=== PATIENT | male | born 1955 | race Caucasian/White ===

== ENCOUNTER 2020-05-22 13:27 | Outpatient (CLI) | payer OTHER ==
[2020-05-22 15:36] VITALS: BP 130/60
--- NOTE | 2020-05-22 15:36 | SLEEP CARE CONSULTATION ---
Information from patient questionnaire entered by Bernadette Trejo. I have reviewed and concur with the information entered by Bernadette Trejo. This document represents the service I personally performed and the decisions made by me, Lencho Borja MD, [facility]. History of Present Illness Service Date and Time: 05/22/2020 1327 Reason for Visit: New patient, Previously diagnosed sleep apnea (moderate - AHI - 24.7 in 2005), Re-establish care Chief Complaint: reports: Unrefreshed sleep, Snoring, Excessive daytime sleepiness, Observed pauses in breathing, Fatigue, Frequent awakenings at night Date of Onset: 10 years, but worse lately Usual bedtime: 10 pm Time it takes to fall asleep: 5 minutes Snores at night: Yes Observed to quit breathing while asleep: Yes Sleeps alone due to snoring: No Number of times waking at night: 3-4 Reasons for waking at night: reports: Other (not sure, I wake up sometimes to roll over) Toss, Turn, or Twitch while sleeping: Yes Recalls having dreams: Yes Usually gets out of bed at: 4 :30 am Feels refreshed in the morning: Yes Morning headache: Yes Sleepy or fatigued during the day: Yes Ever fallen asleep while driving: Yes Takes day naps: Yes Dreams during day naps: No Prior sleep studies: Yes Year and Where: 2005 - [facility]; 1995 - [facility] Type of Sleep Study: Polysomnography Additional HPI information: I had the pleasure of seeing Mr. Unger today regarding obstructive sleep apnea- hypopnea. As you know, he is a 64 year old gentleman who was diagnosed with the sleep-disordered breathing here in 2005. The AHI was 24.7 and jerome oxygen saturation of 72%. He was prescribed a CPAP device and used it for several years. In 2008 he had a bariatric surgery and lost almost 100 lbs. He quit using his CPAP. He wore a nasal mask. [employer] was his durable medical supplier. He now reports loud snore again. His notices choking noises. He feels very sleepy during the day ([place] Sleepiness Scale score of 22). He has high blood pressure. - Parasomnia Symptoms Ever been unable to move upon waking from sleep: No Ever felt weak in the knees when startled or emotional: No Bothered by creepy, crawly, restless sensations in legs: No Problems with memory or concentration: Yes Subjective Initial [place] Sleepiness Scale score: 22 (in 2006) Current [place] Sleepiness Scale score: 22 Past Medical History Past Medical History: reports: Hypertension, Diabetes, GERD Social History The patient's occupation is a [employer]. Patient is and lives in [place]. Have you smoked in the past 12 months: No Cigarettes per day (20/pack): 30 Years of smokin Quit date: 1986 Smoking Pack Years: 9.0 Alcohol use: No Caffeine use: No Family History Family history of sleep disordered breathing: Yes (mother) Allergies and Home Medications Drug allergies reviewed: Yes Home medication list reviewed: Yes Review of Systems Cardiovascular: reports: high blood pressure, irregular heart rate or pulse Gastrointestinal: reports: heartburn Urinary: denies: incontinence, frequency, urgency, impotence, other Neurological: denies: headaches, seizure, head trauma, disorientation, speech dysfunction, gait or balance problems, fainting or unconsciousness, other Psychiatric: denies: Attention Deficit Hyperactivity, anxiety, depression, mood disorder, claustrophobia, other Ear/Nose/Throat: reports: wisdom teeth removed Endocrine: reports: sluggishness Musculoskeletal: denies: joint pain, neck pain, back pain, joint swelling, muscle pain or cramping, mobility problems, other Immunologic: denies: sneezing, rash, itching, allergies to food or environment, other Physical Exam Blood Pressure: 130/60 Heart Rate: 74 O2 Saturation: 96 Height: 5 ft 8 in Weight: 260 lb Body Mass Index: 39.5 BMI Classification: Obese Neck circumference: 19 HEENT: No craniofacial malformation Nostrils: patent to airflow Impression and Plan IMPRESSION: 1. Obstructive Sleep Apnea-Hypopnea Syndrome, moderate, as previously diagnosed but his weight is down 70 lbs. He continues to be symptomatic for loud snore, frequent awakenings, unrefreshed sleep, morning headache, and excessive daytime sleepiness. Narrow oropharynx and obesity are common predisposing factors for obstructive sleep apnea-hypopnea syndrome. Untreated obstructive sleep apnea can also cause hypertension. I recommend proceeding to polysomnography to confirm the diagnosis and to reassess severity. I informed the patient of what the sleep studies involve and after some discussion, he agreed to proceed. Plan: 1. Schedule an in-laboratory polysomnography. 2. Avoid long distance driving or when feeling sleepy. 3. Avoid alcohol, sedative and muscle relaxant around bedtime. 4. Attempt to lose weight. 5. Return for follow up after the sleep study. Visit Type: In Office Time Spent with Patient (minutes): 15 Provider Statement: I spent 100% of the Face to Face Visit with the patient with greater than 50% spent counseling the patient and coordination of care.
== END 2020-05-22 13:28 | disposition home or self-care (01) ==
LOC: SC 13:27
PROVIDERS: ATTEND Internal Medicine Pulmonary Disease
DX: G47.33 Obstructive sleep apnea (adult) (pediatric) (principal); E66.9 Obesity, unspecified; Z68.39 Body mass index [BMI] 39.0-39.9, adult
CPT/HCPCS: 99202; 99212

== ENCOUNTER 2020-06-07 15:50 | Outpatient (CLI) | payer OTHER | END 2020-06-07 15:51 | disposition home or self-care (01) | LOC: SC 15:50 | PROVIDERS: ATTEND Internal Medicine Pulmonary Disease | DX: G47.33 Obstructive sleep apnea (adult) (pediatric) (principal); R09.02 Hypoxemia | CPT/HCPCS: 95806 ==

== ENCOUNTER 2020-06-12 15:24 | Outpatient (CLI) | payer OTHER ==
--- NOTE | 2020-06-12 15:52 | SLEEP CARE CONSULTATION ---
Information from patient questionnaire entered by Khanh Stack. I have reviewed and concur with the information entered by Khanh Stack. This document represents the service I personally performed and the decisions made by me, Lencho Borja MD, [facility]. History of Present Illness Service Date and Time: 06/12/2020 1524 Initial [place] Sleepiness Scale score: 22 (in 2005) Current [place] Sleepiness Scale score: 20 Additional HPI information: HPI: Mr. Unger returned for follow up of the sleep study he had on 06/07/2020. The test showed mild obstructive sleep apnea-hypopnea with an AHI of 14.4 and jerome oxygen saturation of 66%. The respiratory events occurred mainly during supine sleep. Baseline oxygen saturation was normal. The patient was informed of these findings. I explained to him the pathophysiology behind obstructive sleep apnea. We then spent quite a bit of time discussing different treatment options. For mild obstructive sleep apnea, surgery and oral appliance are alternatives to nasal CPAP therapy but in mod erate or severe cases, nasal CPAP is the most effective and reliable treatment. Weight loss in an obese individual is strongly recommended. After some discussion, he opted to try CPAP again. The patient used CPAP for many years and quit after bariatric surgery. He used a nasal mask. [employer] was his durable medical supplier. Sleep Study - Results Type of Sleep Study: Home sleep study Prior sleep studies: Yes Year and Where: 2005 - [facility]; 1995 - [facility] Allergies and Home Medications Drug allergies reviewed: Yes Home medication list reviewed: Yes Review of Systems Review of systems same as previous: Yes Physical Exam Height: 5 ft 8 in Weight: 260 lb Weight change since last visit: -70 lbs Body Mass Index: 39.5 BMI Classification: Obese Impression and Plan IMPRESSION: 1. Obstructive Sleep Apnea-Hypopnea Syndrome, mild, associated with moderate hypoxemia. Most likely, this is the cause of the patients symptoms of unrefreshed sleep, and excessive daytime sleepiness. As mentioned above, the patient will be started autoCPAP set between 5 and 15 cmH2O. Depending on his response and compliance he may be brought back for an overnight CPAP titration study. PLAN: 1. Prescription made for an autoCPAP, heated humidifier, and related supplies. 2. Attempt to lose weight and avoid alcohol consumption near bedtime. 3. Return for follow up after one month of using the CPAP. Counseling Topics: Weight loss health impact Prescriptions: Auto CPAP Follow up with Sleep Care in: 1-2 months Visit Type: In Office Time Spent with Patient (minutes): 15 Provider Statement: I spent 100% of the Face to Face Visit with the patient with greater than 50% spent counseling the patient and coordination of care.
== END 2020-06-12 15:25 | disposition home or self-care (01) ==
LOC: SC 15:24
PROVIDERS: ATTEND Internal Medicine Pulmonary Disease
DX: G47.33 Obstructive sleep apnea (adult) (pediatric) (principal); E66.9 Obesity, unspecified; Z68.39 Body mass index [BMI] 39.0-39.9, adult
CPT/HCPCS: 99212

== ENCOUNTER 2020-11-06 10:41 | Outpatient (CLI) | payer OTHER ==
--- NOTE | 2020-11-06 11:05 | SLEEP CARE CONSULTATION ---
Information from patient questionnaire entered by Danielle Spain. I have reviewed and concur with the information entered by Danielle Spain. This document represents the service I personally performed and the decisions made by me, Lencho Borja MD, [facility]. History of Present Illness Service Date and Time: 11/06/2020 1041 Previous diagnosis: Moderate, Obstructive Sleep Apnea-Hypopnea Syndrome AHI: 24.7 Reason for follow up: first compliance Equipment type: CPAP Equipment obtained from: Other ([employer]) Prior sleep studies: Yes Year and Where: 2005 - [facility]; 1995 - [facility] Type of Sleep Study: Home sleep study HPI additional information: HPI: Mr. Unger was diagnosed to have mild obstructive sleep apnea-hypopnea syndrome and returns today for follow up of CPAP therapy. The patient purchased the device from [employer] and was fitted with a nasal mask. He uses the device nightly and all through the night. The compliance report shows that he uses the device 30 nights out of the past 30 nights, averaging 6.4 hours a night. He complains of no particular problem with the device such as soreness on the face, dry nose, epistaxis, nasal congestion or headache. He thinks that the pressure of 5 - 15 cmH2O is comfortable. On the CPAP therapy he notices improvement in his sleep quality, and that he wakes up feeling fresher in the morning and more awake/alert during the day. His notices no snore at all. [place] Sleepiness Scale score is 22. The average residual AHI is 6.1; and average time in large leak per day is 0 minutes a night. The 90th percentile pressure is 9.4 cmH2O. Sleep Study - Results Type of Sleep Study: Home sleep study Prior sleep studies: Yes Year and Where: 2005 - [facility]; 1995 - [facility] CPAP Compliance Data - Data Reviewed with Patient Average duration of nightly device use: 6 hours 22 minutes Compliance rate %: 100 Current pressure setting (cmH2O): 5-15 Humidity settin Heated hose settin Average residual AHI: 6.1 Average large leak: 0 seconds Subjective Initial [place] Sleepiness Scale score: 22 (in 2005) Allergies and Home Medications Drug allergies reviewed: Yes Home medication list reviewed: Yes Review of Systems Review of systems same as previous: Yes Physical Exam Height: 5 ft 8 in Weight: 259 lb Body Mass Index: 39.4 BMI Classification: Obese Impression and Plan IMPRESSION: 1. Obstructive Sleep Apnea-Hypopnea Syndrome, mild, with the patient continuing to do well on nasal CPAP therapy. He has excellent compliance and significant clinical benefits. The current pressure appears comfortable but slightly ineffective. Overall, he is very satisfied with treatment and plans to continue with it long-term. I will adjust his pressure range to 8 12 cmH2O. His high [place] Sleepiness Scale score is most likely to insufficient sleep at night. PLAN: 1. Set the autoCPAP to 8 - 12 cm H2O. 2. Try to lose weight 3. Return in one year for follow up or earlier if there is any problem with the treatment. Counseling Topics: Weight control Visit Type: In Office Time Spent with Patient (minutes): 15 Provider Statement: I spent 100% of the Face to Face Visit with the patient with greater than 50% spent counseling the patient and coordination of care.
== END 2020-11-06 10:42 | disposition home or self-care (01) ==
LOC: SC 10:41
PROVIDERS: ATTEND Internal Medicine Pulmonary Disease
DX: G47.33 Obstructive sleep apnea (adult) (pediatric) (principal); E66.9 Obesity, unspecified; Z68.39 Body mass index [BMI] 39.0-39.9, adult
CPT/HCPCS: 99212

== ENCOUNTER 2021-08-28 08:00 | Outpatient (CLI) | payer OTHER | END 2021-08-28 23:59 | disposition home or self-care (01) | LOC: LAB 08:00 | PROVIDERS: ATTEND Podiatrist | DX: E11.622 Type 2 diabetes mellitus with other skin ulcer (principal) | CPT/HCPCS: 87070; 87077; 87181; 87205 ==

== ENCOUNTER 2022-02-04 15:24 | Outpatient (CLI) | payer OTHER ==
[2022-02-04 15:52] VITALS: BP 128/70
--- NOTE | 2022-02-04 15:52 | SLEEP CARE CONSULTATION ---
Information from patient questionnaire entered by Huber Noel. I have reviewed and concur with the information entered by Huber Noel. This document represents the service I personally performed and the decisions made by me, Lencho Borja MD, [facility]. History of Present Illness Service Date and Time: 02/04/2022 1524 Previous diagnosis: Moderate, Obstructive Sleep Apnea-Hypopnea Syndrome AHI: 24.7 Reason for follow up: annual (LAST SEEN 11/2020) Equipment type: CPAP (DREAM STATION) Equipment obtained from: Other ([employer]) Prior sleep studies: Yes Year and Where: 2005 - [facility]; 1995 - [facility] Type of Sleep Study: Home sleep study HPI additional information: Mr. Unger was diagnosed to have mild obstructive sleep apnea-hypopnea syndrome and returns today for follow up of CPAP therapy. The patient purchased the device from [employer] and was fitted with a nasal mask. He uses the device nightly and all through the night. The compliance report shows that he uses the device 78 nights out of the past 183 nights, averaging 6.3 hours a night. This is because his machine stopped transmitting data after October of this year and he does not have a memory card inside his [facility]. He complains of no particular problem with the device such as soreness on the face, dry nose, epistaxis, nasal congestion or headache. He thinks that the pressure of 8 - 12 cmH2O is comfortable. On the CPAP therapy he notices improvement in his sleep quality, and that he wakes up feeling fresher in the morning and more awake/alert during the day. His notices occasional snore through the CPAP. [place] Sleepiness Scale score is 15 (was 22). The average residual AHI is 5.7 (was 6.1); and average time in large leak per day is 0 minutes a night. The 90th percentile pressure is 9.4 cmH2O. Sleep Study - Results Type of Sleep Study: Home sleep study Prior sleep [facility]: Yes [facility] - [facility] Subjective Initial [place] Sleepiness Scale score: 22 (in 2005) Current [place] Sleepiness Scale score: 15 (02/04/2022) Allergies and Home Medications Drug allergies reviewed: Yes Home medication list reviewed: Yes Allergy and home medication list: Allergies No Known Drug Allergies Allergy (Verified 09/17/13 09:54) Review of Systems Review of systems same as previous: Yes Physical Exam Vital signs obtained and entered by: HUBER Bishop MA Blood Pressure: 128/70 (left arm) Cuff size: regular Heart Rate: 65 O2 Saturation: 97 Height: 5 ft 8 in Weight: 254 lb 9.6 oz Body Mass Index: 38.7 BMI Classification: Obese Impression and Plan IMPRESSION: 1. Obstructive Sleep Apnea-Hypopnea Syndrome, mild, with the patient continuing to do well on nasal CPAP therapy. He has good compliance and significant clinical benefits. The current pressure appears comfortable but still slightly ineffective. Overall, he is very satisfied with treatment and plans to continue with it long-term. I will adjust his pressure range further to 9 - 13 cmH2O. His high [place] Sleepiness Scale score is most likely to insufficient sleep at night. PLAN: 1. Prescription made for supplies and to set the autoCPAP at 9 - 13 cm H2O. 2. Try to lose weight 3. Return in one year for follow up or earlier if there is any problem with the treatment. Adjust device pressure to (cmH2O): 9 - 13 Prescriptions: Device supplies Follow up with Sleep Care in: 1 year Visit Type: In Office Time Spent with Patient (minutes): 15 Provider Statement: I spent 100% of the Face to Face Visit with the patient with greater than 50% spent counseling the patient and coordination of care.
== END 2022-02-04 15:25 | disposition home or self-care (01) ==
LOC: SC 15:24
PROVIDERS: ATTEND Internal Medicine Pulmonary Disease
DX: G47.33 Obstructive sleep apnea (adult) (pediatric) (principal); E66.9 Obesity, unspecified; Z68.38 Body mass index [BMI] 38.0-38.9, adult
CPT/HCPCS: 99212

== ENCOUNTER 2023-01-08 06:38 | Outpatient (CLI) | payer OTHER ==
--- NOTE | 2023-01-08 07:51 | Ultrasound Report ---
PROCEDURE: Aorta Screening INDICATIONS: SCREENING FOR CARDIOVASCULAR DISEASE TECHNIQUE: Real time scanning was performed of the aorta and iliac arteries, with image documentatio n. COMPARISON: None. FINDINGS: Aorta: Proximal aortic diameter measures 2.1 x 2.1 cm. Mid-aorta measures 1.9 x 1.9 cm. Distal aor tic diameter is 1.6 x 1.7 cm. Iliac arteries: Right common iliac artery measures 1.3 x 1.4 cm. Left common iliac artery measures 1.2 x 1.2 cm. IMPRESSION: 1. No abdominal aortic aneurysm. 2. Bilateral common iliac arteries are normal in caliber, where visualized. Recommended intervals for follow-up imaging of ectatic aortas and abdominal aortic aneurysms, per ACR consensus guidelines: 2.5-2.9 cm: 5 years 3.0-3.4 cm: 3 years 3.5-3.9 cm: 2 years 4.0-4.4 cm: 1 year 4.5-4.9 cm: 6 months + endovascular referral 5.0-5.5 cm: 3-6 months + endovascular referral Reviewed by: Donovan Lam MD on 01/08/2023 7:49 AM PDT Approved by: Donovan Lam MD on 01/08/2023 7:49 AM PDT Station ID: [id number]
== END 2023-01-08 06:39 | disposition home or self-care (01) ==
LOC: DI 06:38
PROVIDERS: ATTEND Student in an Organized Health Care Education/Training Program
DX: Z13.6 Encounter for screening for cardiovascular disorders (principal)

== ENCOUNTER 2023-01-22 15:21 | Outpatient (CLI) | payer OTHER ==
--- NOTE | 2023-01-22 15:37 | Sleep Patient Instructions ---
Sleep Center Visit Summary - Patient Visit Information Reason for Visit: Annual Visit for PAP therapy - Patient Instructions Additional Instructions: You will continue with CPAP therapy with pressure set at 8-12 cmH2O. A supply prescription will be updated with your DME. We encourage you to continue to try to lose weight. Please follow up with the sleep care office in 1 year. - Clinic Information Contact: [facility] [address] [place] [address] [email or web address] T: [phone]
--- NOTE | 2023-01-22 15:40 | SLEEP CARE CONSULTATION ---
Information from patient questionnaire entered by Beatriz Noel. I have reviewed and concur with the information entered by Beatriz Noel. This document represents the service I personally performed and the decisions made by me, Carina Lee ARNP. History of Present Illness Service Date and Time: 01/22/2023 1521 Previous diagnosis: Moderate, Obstructive Sleep Apnea-Hypopnea Syndrome AHI: 24.7 Reason for follow up: annual (LAST SEEN 01/2022) Equipment type: CPAP (DREAMSTATION 2; s/u 09/2020) Equipment obtained from: Other ([employer]; getting supplies as needed) Mask style: Nasal (over the nose) Backup mask available: Yes Last cushion change: less than a month Prior sleep studies: Yes Year and Where: 2005 - [facility]; [facility] Type of Sleep Study: Home sleep study HPI additional information: TERESE FISHER was diagnosed to have moderate, AHI 24.7, obstructive sleep apnea- hypopnea syndrome and returned today for CPAP therapy annual follow-up. Sleep Study - Results Type of Sleep Study: Home sleep study Prior sleep studies: Yes Year and Where: 2005 - [facility]; [facility] CPAP Compliance Data - Data Reviewed with Patient Average duration of nightly device use: 6 HRS 7 MINS 43 SECS Compliance rate %: 98.9 (07/24/22-01/19/23; 178/180 days used) Current pressure setting (cmH2O): 8-12 Average residual AHI: 5.8 Central apnea: 1 Obstructive apnea: 1.9 Hypopnea: 2.9 Average large leak: 5 secs Subjective Patient concerns: denies: aerophagia, mask discomfort, air blowing in eyes, mask leak noise, condensation in mask/hose, nasal congestion, dry mouth, nose, throat, epistaxis Observed to snore while using device: No Current pressure setting perceived as: comfortable On therapy, patient: reports: sleeping better, awakening more refreshed, being more awake and alert during the day, more rested overall. denies: drowsiness while driving Initial [place] Sleepiness Scale score: 22 (in 2005) Current [place] Sleepiness Scale score: 16 (01/22/23) Allergies and Home Medications Known drug allergies: No Drug allergies reviewed: Yes Home medication list reviewed: Yes (glipizide) Allergy and home medication list: Allergies No Known Drug Allergies Allergy (Verified 01/21/23 13:19) Review of Systems Review of systems same as previous: Yes (NO CHANGE) Physical Exam Vital signs obtained and entered by: BEATRIZ Bishop MA Blood Pressure: 124/62 (LEFT ARM) Cuff size: regular Heart Rate: 73 O2 Saturation: 97 Height: 5 ft 8 in Weight: 257 lb 12.8 oz Body Mass Index: 39.2 BMI Classification: Obese Impression and Plan 1. Obstructive Sleep Apnea-Hypopnea Syndrome, moderate, with good treatment compliance and good apnea control with minimal elevation of residual AHI. On CPAP therapy, the patient has better sleep quality and is more rested overall. Patient has significant improvement of their sleep apnea and is satisfied with current CPAP therapy. He is comfortable at current pressure and I will make no pressure adjustment today. Patient denies problems with oral dryness, nasal congestion, epistaxis, skin irritation or aerophagia. Patient's apnea severity and rationale for treatment to reduce apnea, improve sleep quality and reduce cardiovascular and cerebrovascular events was reviewed. I also reviewed the benefit of consistent device use of CPAP for hypertension and diabetes. 2. Obesity, unspecified. Currently patients BMI is 39.2. Obesity increases the risk of apnea, CPAP pressure requirements and overall health risks especially cardiovascular and diabetes. Thus patient is advised to lose weight. * Continue auto CPAP pressure at 9-13 cmH2O * Update supplies * Notify me if snoring with mask or feeling that the pressure is too much or too little * Attempt to lose weight * Call this office if any problems using CPAP * Return for follow up in 1 year, or sooner if concerns arise Counseling Topics: Spare mask, Weight loss health impact Prescriptions: Device supplies Follow up with Sleep Care in: 1 year Visit Type: In Office Time Spent with Patient (minutes): 15 Provider Statement: I spent 100% of the Face to Face Visit with the patient with greater than 50% spent counseling the patient and coordination of care.
[2023-01-22 15:47] VITALS: BP 124/62; O2SAT 97
== END 2023-01-22 15:22 | disposition home or self-care (01) ==
LOC: SC 15:21
PROVIDERS: ATTEND Nurse Practitioner Family
DX: G47.33 Obstructive sleep apnea (adult) (pediatric) (principal); E66.9 Obesity, unspecified; Z68.39 Body mass index [BMI] 39.0-39.9, adult
CPT/HCPCS: 99212

== ENCOUNTER 2023-12-06 13:39 | Outpatient (CLI) | payer OTHER | END 2023-12-06 13:40 | disposition home or self-care (01) | LOC: DI 13:39 | PROVIDERS: ATTEND Internal Medicine | DX: R01.1 Cardiac murmur, unspecified (principal); I35.0 Nonrheumatic aortic (valve) stenosis; I77.819 Aortic ectasia, unspecified site | CPT/HCPCS: 93307 ==